=== PATIENT | female | born 1950 ===

== ENCOUNTER 2017-06-23 09:17 | Day surgery (SDC) | payer OTHER ==
[2017-06-23] MEDS ORDERED: Lactated Ringer's 1,000 ML IV ONE (10:45)
--- NOTE | 2017-06-23 10:47 | CP.SDSHP ---
Same Day Surgery H & P - History Proposed Procedure: COLONSCOPY Pre-Op Diagnosis: SEE NOTES - Previous Medical/Surgical History Endocrine/Metabolic: Diabetes Misc: Other Pain: 2.Mild Pain - Allergies Allergies: Allergies No Known Allergies Allergy (Verified 06/23/17 10:12) - Physical Exam General Appearance: N Vital Signs: Vital Signs 06/23/17 09:40 Temperature 97.3 F L Pulse Rate 80 Respiratory 16 Rate Blood Pressure 134/71 O2 Sat by Pulse 99 Oximetry Mental Status: Alert & Oriented x3 Neuro: WNL Heart: WNL Lungs: WNL GI: Other - {Optional Preform as Required} Breast: WNL Abdomen: Other Rectal: Other Integument: WNL : WNL Ortho: WNL ENT: WNL - Impression Pt. Evaluated Today:Candidate for Anesthesia & Procedure: Yes - Date & Time Time: 10:48 Short Stay Discharge - Short Stay Discharge Admitting Diagnosis/Reason for Visit: ENCOUNTER FOR SCREENING FOR MALIGNANT NEOPLASM OF Disposition: HOME/ ROUTINE
[2017-06-23] MEDS ORDERED: Propofol 10 mg/ml Inj (20 ML) ONE (10:48)
[2017-06-23] MEDS ORDERED: Pantoprazole 40 mg EC Tab PO STA (10:50)
[2017-06-23 11:35] VITALS: TEMP 98.3; O2SAT 100
[2017-06-23 11:39] VITALS: RESP 16
[2017-06-23] MEDS ORDERED: Belladonna-Phenobarbital PO ONE (11:40)
[2017-06-23 12:14] VITALS: BP 134/66; PULSE 79
== END 2017-06-23 15:30 | disposition home or self-care (01) ==
LOC: C.ENDO 09:17
PROVIDERS: ATTEND Specialist
DX: K64.8 Other hemorrhoids (principal); K64.4 Residual hemorrhoidal skin tags
CPT/HCPCS: 45380; 88305; J2704; J7120